=== PATIENT | female | born 1965 | race Caucasian/White ===

== ENCOUNTER 2019-07-09 09:22 | Outpatient (CLI) | payer BC ==
--- NOTE | 2019-07-09 09:40 | RAD ---
XR Chest Pa Lat @ [facility] HISTORY: Dyspnea COMPARISON: None. FINDINGS: Heart size within normal limits postop sternotomy changes are seen. There are some linear i nterstitial changes which appear to represent scar. No focal infiltrative process. There are arthritic changes of the spine. IMPRESSION: Mild chronic appearing interstitial lung change.
== END 2019-07-09 09:23 | disposition home or self-care (01) ==
LOC: RAD 09:22
PROVIDERS: ATTEND Thoracic Surgery (Cardiothoracic Vascular Surgery)
DX: I20.0 Unstable angina (principal)
CPT/HCPCS: 71046